=== PATIENT | male | born 1955 | race Hispanic/Latino ===

== ENCOUNTER → 2023-07-20 | Day surgery (SDC) | payer MEDICARE ==
[2023-07-18 09:45] LABS: BASOPHILS # (AUTO) 0.1 (0.0-0.1); BASOPHILS % 0.7 % (0.0-1.0); EOSINOPHILS # (AUTO) 0.2 (0.0-0.4); EOSINOPHILS % 2.6 % (0.0-6.0); HEMATOCRIT 41.6 % (38.2-49.6); HEMOGLOBIN 14.3 g/dL (14.0-18.0); LYMPHOCYTES # (AUTO) 2.4 (1.0-3.2); LYMPHOCYTES % 33.3 % (18.0-39.1); MEAN CORPUSCULAR HEMOGLOBIN 29.6 pg (28-32); MEAN CORPUSCULAR HGB CONC 34.4 g/dL (31-35); MEAN CORPUSCULAR VOLUME 86.1 fL (81-99); MONOCYTES # (AUTO) 0.8 (0.2-0.8); MONOCYTES % 11.3 % (4.4-11.3); NEUTROPHILS # (AUTO) 3.8 (2.1-6.9); NEUTROPHILS % 51.7 % (38.7-80.0); PLATELET COUNT 231 x10e3/uL (140-360); RED BLOOD COUNT 4.83 x10e6/uL (4.3-5.7); RED CELL DISTRIBUTION WIDTH 11.4 % (11.7-14.4); WHITE BLOOD COUNT 7.32 x10e3/uL (4.8-10.8)
[~2023-07-20] MED LIST: ATORVASTATIN CA20 MG PO; FENTANYL CITRATE/PF 100MCG/2 ML INJ ONE; GLIMEPIRIDE2 MG PO; LACTATED RINGER'S 1,000 ML ONE; LIDOCAINE HCL 2% LOCAL INJ 5 ML SDV VIAL INJ ONE; METFORMIN HCL500 MG PO; MIDAZOLAM HCL 2 MG/2 ML VIAL ONE; PROPOFOL IV EMULSION 10 MG/ML 20 ML VIAL ONE; TERBINAFINE HC250 MG PO
[2023-07-20 11:11] VITALS: TEMP 97.3
[2023-07-20 11:40] VITALS: BP 110/66; PULSE 62; RESP 18; O2SAT 99
== END | disposition home or self-care (01) ==
LOC: OR 08:17
PROVIDERS: ATTEND Internal Medicine Gastroenterology
DX: R19.5 Other fecal abnormalities (principal); K63.5 Polyp of colon; K62.1 Rectal polyp; K62.4 Stenosis of anus and rectum; K59.09 Other constipation; Z71.89 Other specified counseling; E11.9 Type 2 diabetes mellitus without complications; I10 Essential (primary) hypertension; Z71.3 Dietary counseling and surveillance; Z01.810 Encounter for preprocedural cardiovascular examination; Z01.812 Encounter for preprocedural laboratory examination; Z79.84 Long term (current) use of oral hypoglycemic drugs; Z79.899 Other long term (current) drug therapy
CPT/HCPCS: 36415 ×2; 45385; 82948; 85025; 88305; 93005; J2250; J3010; J7121; 45378; J2001

== ENCOUNTER 2024-03-10 13:41 | Inpatient (IN) | payer MEDICARE, OTHER ==
[~2024-03-10] VITALS: Ht 172.7 cm; Wt 77.1 kg
[2024-03-10] VITALS (16 sets, daily range): BP systolic 87–194; BP diastolic 61–92; PULSE 72–165; RESP 14–23; TEMP 97.5–98.6; O2SAT 91–97
[~2024-03-10 13:41] MED LIST changes: +DOXYCYCLINE HY100 MG PO; -FENTANYL CITRATE/PF 100MCG/2 ML INJ ONE; -LACTATED RINGER'S 1,000 ML ONE; -LIDOCAINE HCL 2% LOCAL INJ 5 ML SDV VIAL INJ ONE; -MIDAZOLAM HCL 2 MG/2 ML VIAL ONE; -PROPOFOL IV EMULSION 10 MG/ML 20 ML VIAL ONE
[2024-03-10] MEDS: ONDANSETRON HCL INJ 2MG/ML 2ML 2 MG/ML VIAL IV STA (14:34)
[2024-03-10] MEDS: SODIUM CHLORIDE 0.9% 1000ML 1,000 ML IV ONE ×2 (14:34→15:51)
[2024-03-10] MEDS: FAMOTIDINE 20 MG/2 ML VIAL IV STA (14:35)
[2024-03-10] MEDS: SODIUM CHLORIDE 0.9% 1000ML 1,000 ML IV SCH (17:30)
[2024-03-10] MEDS: HYDRALAZINE HCL 20 MG/ML VIAL IV PRN (18:39)
[2024-03-10] MEDS: ONDANSETRON HCL INJ 2MG/ML 2ML 2 MG/ML VIAL IV PRN (18:42)
[2024-03-10] MEDS: AMIODARONE 900MG 900 MG in Premix Bag 1 BAG IV SCH (21:30)
[2024-03-10] MEDS: DILTIAZEM HCL VIAL 5 ML ONE (22:24)
[2024-03-10] MEDS: DILTIAZEM HCL 5 MG/ML 5 ML VIAL IV STA (22:24)
[2024-03-10] MEDS: DILTIAZEM HCL 5 MG/ML 5 ML VIAL IV ONE (22:26)
[2024-03-10] MEDS: METOPROLOL TARTRATE INJ 1 MG/ML VIAL ONE (22:26)
[2024-03-10] MEDS: METOPROLOL SUCCINATE 25 MG TAB XL ONE (22:27)
[2024-03-10] MEDS: AMIODARONE 900MG 500 ML IV ONE (22:27)
[2024-03-10] MEDS: METOPROLOL TARTRATE 25 MG TAB PO ONE (22:35)
[2024-03-11] VITALS (40 sets, daily range): BP systolic 90–193; BP diastolic 64–138; PULSE 60–141; RESP 6–30; TEMP 98–98.6; O2SAT 92–100
[2024-03-11 06:52] LABS: BASOPHILS % 0.5 % (0.0-1.0); EOSINOPHILS # (AUTO) 0.1 (0.0-0.4); EOSINOPHILS % 0.7 % (0.0-6.0); HEMATOCRIT 39.3 % (38.2-49.6); HEMOGLOBIN 12.6 g/dL (14.0-18.0); LYMPHOCYTES # (AUTO) 1.4 (1.0-3.2); MEAN CORPUSCULAR HEMOGLOBIN 28.6 pg (28-32); MEAN CORPUSCULAR HGB CONC 32.1 g/dL (31-35); MEAN CORPUSCULAR VOLUME 89.1 fL (81-99); MONOCYTES # (AUTO) 1.3 (0.2-0.8); NEUTROPHILS # (AUTO) 5.7 (2.1-6.9); NEUTROPHILS % 67.4 % (38.7-80.0); PLATELET COUNT 247 x10e3/uL (140-360); RED BLOOD COUNT 4.41 x10e6/uL (4.3-5.7); RED CELL DISTRIBUTION WIDTH 12.5 % (11.7-14.4); WHITE BLOOD COUNT 8.46 x10e3/uL (4.8-10.8)
[2024-03-11 07:17] LABS: ANION GAP 11.9 mmol/L (8-16); CALCIUM 8.7 mg/dL (8.4-10.2); CREATININE, SERUM 1.13 mg/dL (0.72-1.25); POTASSIUM 3.9 mmol/L (3.5-5.1)
[2024-03-11] MEDS: METOPROLOL TARTRATE 50 MG TAB PO SCH (12:18)
[2024-03-11] MEDS: ASPIRIN 81 MG ENTERIC COATED PO SCH (16:07)
[2024-03-11] MEDS ORDERED: DEXTROSE 50% SYRINGE 50 ML IV PRN (16:15)
[2024-03-11] MEDS: INSULIN LISPRO 100 UNIT/1 ML 3ML VIAL SQ SCH (17:07)
[2024-03-11] MEDS: ENOXAPARIN SOD INJ 40 MG/0.4 ML SYR SC SCH (17:08)
[2024-03-11] MEDS: AMIODARONE HCL 200 MG TAB PO SCH (17:09)
[2024-03-11] MEDS: METOPROLOL TARTRATE 25 MG TAB PO SCH (17:09)
[2024-03-12] VITALS (7 sets, daily range): BP systolic 122–178; BP diastolic 52–84; PULSE 59–79; RESP 11–18; TEMP 97.7–98.6; O2SAT 96–99
[2024-03-12 05:46] LABS: BASOPHILS # (AUTO) 0.1 (0.0-0.1); BASOPHILS % 0.5 % (0.0-1.0); EOSINOPHILS # (AUTO) 0.3 (0.0-0.4); EOSINOPHILS % 2.7 % (0.0-6.0); HEMATOCRIT 37.8 % (38.2-49.6); HEMOGLOBIN 12.5 g/dL (14.0-18.0); LYMPHOCYTES # (AUTO) 1.7 (1.0-3.2); LYMPHOCYTES % 17.7 % (18.0-39.1); MEAN CORPUSCULAR HEMOGLOBIN 29.2 pg (28-32); MEAN CORPUSCULAR HGB CONC 33.1 g/dL (31-35); MEAN CORPUSCULAR VOLUME 88.3 fL (81-99); MONOCYTES # (AUTO) 1.2 (0.2-0.8); MONOCYTES % 13.1 % (4.4-11.3); NEUTROPHILS # (AUTO) 6.2 (2.1-6.9); NEUTROPHILS % 65.9 % (38.7-80.0); PLATELET COUNT 213 x10e3/uL (140-360); RED BLOOD COUNT 4.28 x10e6/uL (4.3-5.7); RED CELL DISTRIBUTION WIDTH 12.2 % (11.7-14.4); WHITE BLOOD COUNT 9.36 x10e3/uL (4.8-10.8)
[2024-03-12 06:11] LABS: ALBUMIN 2.8 g/dL (3.5-5.0); ALBUMIN/GLOBULIN RATIO 1.1 (0.8-2.0); ANION GAP 12.5 mmol/L (8-16); BILIRUBIN,TOTAL 0.8 mg/dL (0.2-1.2); CALCIUM 8.1 mg/dL (8.4-10.2); CHOL/HDL RATIO 2.7 (3.9-4.7); CREATININE, SERUM 0.82 mg/dL (0.72-1.25); POTASSIUM 3.5 mmol/L (3.5-5.1); TOTAL PROTEIN 5.4 g/dL (6.5-8.1)
[2024-03-12] MEDS: CARVEDILOL 12.5 MG TAB PO SCH (08:59)
[2024-03-13] VITALS (7 sets, daily range): BP systolic 127–179; BP diastolic 65–86; PULSE 65–82; RESP 16–20; TEMP 97.7–98.7; O2SAT 93–100
[2024-03-14] VITALS: BP 165/78; PULSE 71; RESP 19; TEMP 98.5; O2SAT 100
[2024-03-14 04:00] VITALS: BP 181/76; PULSE 76; RESP 18; TEMP 98.7; O2SAT 98
[2024-03-14 07:42] VITALS: BP 169/98; PULSE 76; RESP 18; TEMP 98.5; O2SAT 98
[2024-03-14 11:28] VITALS: BP 125/72; PULSE 60; RESP 18; TEMP 97.9; O2SAT 98
[2024-03-14] MEDS ORDERED: CARVEDILOL 12.5 MG TAB PO SCH (17:00)
== END 2024-03-14 14:59 | disposition home or self-care (01) | DRG 922 ==
LOC: FSED 13:49 → ERHOLD 15:24 → MED/SURG2 16:40 → ICU 21:20 → MED/SURG3 03-12 14:55
PROVIDERS: ADMIT Internal Medicine; ATTEND Internal Medicine
DX: T67.5XXA Heat exhaustion, unspecified, initial encounter (principal); N17.0 Acute kidney failure with tubular necrosis; M62.82 Rhabdomyolysis; E11.65 Type 2 diabetes mellitus with hyperglycemia; E86.0 Dehydration; E78.5 Hyperlipidemia, unspecified; I48.91 Unspecified atrial fibrillation; Z79.84 Long term (current) use of oral hypoglycemic drugs
CPT/HCPCS: 36415; 80048; 80053; 80061; 80076; 80307; 81003; 82550; 82948; 84443; 85025; 93005; 93306; 99252; 99284; J0360; J1650; J2405; J7030

== ENCOUNTER 2024-11-21 22:36 | Inpatient (IN) | payer MEDICARE, OTHER ==
[~2024-11-21] VITALS: Ht 170.2 cm; Wt 78.7 kg
[2024-11-22] VITALS (11 sets, daily range): BP systolic 133–166; BP diastolic 65–80; PULSE 65–105; RESP 16–20; TEMP 97.6–98.3; O2SAT 95–100
[2024-11-22] MEDS: FUROSEMIDE INJ 10 MG/ML 4 ML VIAL IV ONE (01:10)
[2024-11-22] MEDS ORDERED: ONDANSETRON HCL INJ 2MG/ML 2ML 2 MG/ML VIAL IV PRN (01:30)
[2024-11-22] MEDS ORDERED: SODIUM CHLORIDE FLUSH 10 ML SYR INJ PRN (01:30)
[2024-11-22] MEDS: ASPIRIN 81 MG CHEW TAB PO ONE (01:37)
[2024-11-22] MEDS ORDERED: ACETAMINOPHEN 325 MG TAB PO PRN ×2 (02:15→11:30)
[2024-11-22] MEDS ORDERED: DEXTROSE 50% SYRINGE 50 ML IV PRN (02:15)
[2024-11-22] MEDS ORDERED: FUROSEMIDE40 MG PO (05:09)
[2024-11-22] MEDS ORDERED: METOPROLOL SUCC25 MG PO (05:09)
[2024-11-22] MEDS ORDERED: AMLODIPINE BESYL5 MG PO (05:10)
[2024-11-22] MEDS ORDERED: LOSARTAN POTAS100 MG PO (05:10)
[2024-11-22] MEDS ORDERED: ASPIRIN81 MG PO (05:10)
[2024-11-22] MEDS: INSULIN LISPRO 100 UNIT/1 ML 3ML VIAL SQ SCH (08:54)
[2024-11-22 09:14] LABS: BASOPHILS % 0.3 % (0.0-1.0); EOSINOPHILS # (AUTO) 0.2 (0.0-0.4); EOSINOPHILS % 1.6 % (0.0-6.0); HEMATOCRIT 27.4 % (38.2-49.6); HEMOGLOBIN 9.3 g/dL (14.0-18.0); LYMPHOCYTES # (AUTO) 1.1 (1.0-3.2); LYMPHOCYTES % 10.1 % (18.0-39.1); MEAN CORPUSCULAR HEMOGLOBIN 28.5 pg (28-32); MEAN CORPUSCULAR HGB CONC 33.9 g/dL (31-35); MONOCYTES # (AUTO) 0.9 (0.2-0.8); MONOCYTES % 8.3 % (4.4-11.3); NEUTROPHILS # (AUTO) 8.3 (2.1-6.9); NEUTROPHILS % 79.4 % (38.7-80.0); PLATELET COUNT 223 x10e3/uL (140-360); RED BLOOD COUNT 3.26 x10e6/uL (4.3-5.7); RED CELL DISTRIBUTION WIDTH 13.3 % (11.7-14.4); WHITE BLOOD COUNT 10.45 x10e3/uL (4.8-10.8)
[2024-11-22 09:42] LABS: CHOL/HDL RATIO 1.6 (3.9-4.7)
[2024-11-22] MEDS: ASPIRIN 81 MG ENTERIC COATED PO SCH (09:44)
[2024-11-22] MEDS: METOPROLOL TARTRATE 25 MG TAB PO SCH (09:44)
[2024-11-22] MEDS: ENOXAPARIN INJ 80 MG/0.8 ML SYR SC SCH (09:45)
[2024-11-22] MEDS: AMIODARONE HCL 200 MG TAB PO SCH (09:45)
[2024-11-22] MEDS: METOPROLOL TARTRATE INJ 1 MG/ML VIAL IV ONE (09:45)
[2024-11-22 09:48] LABS: TROPONIN I 0.035 ng/mL (0-0.300)
[2024-11-22 10:02] LABS: THYROID STIMULATING HORMONE 1.374 uIU/mL (0.350-4.940)
[2024-11-22] MEDS ORDERED: METOPROLOL TARTRATE INJ 1 MG/ML VIAL IV PRN (11:30)
[2024-11-22] MEDS ORDERED: DOCUSATE SODIUM 100 MG CAP PO PRN (11:30)
[2024-11-22] MEDS ORDERED: ALBUTEROL/IPRATROPIUM 3 ML NEB NEB PRN (11:30)
[2024-11-22] MEDS: FUROSEMIDE INJ 10 MG/ML 2 ML VIAL IV SCH (12:14)
[2024-11-22] MEDS ORDERED: REGADENOSON 0.4 MG/5 ML SYR IV ONE (15:17)
[2024-11-22] MEDS ORDERED: MELATONIN 3 MG TAB PO PRN (21:00)
[2024-11-22] MEDS: ENOXAPARIN SOD INJ 40 MG/0.4 ML SYR SC SCH (21:14)
[2024-11-22] MEDS: ATORVASTATIN 20 MG TAB PO SCH (21:15)
[2024-11-23] VITALS: BP 145/66; PULSE 70; RESP 19; TEMP 99.1; O2SAT 94
[2024-11-23 05:30] VITALS: BP 144/67; PULSE 77; RESP 18; TEMP 98.4; O2SAT 96
[2024-11-23 06:24] LABS: BASOPHILS % 0.4 % (0.0-1.0); EOSINOPHILS # (AUTO) 0.2 (0.0-0.4); EOSINOPHILS % 2.6 % (0.0-6.0); HEMOGLOBIN 8.7 g/dL (14.0-18.0); LYMPHOCYTES # (AUTO) 1.4 (1.0-3.2); LYMPHOCYTES % 17.9 % (18.0-39.1); MEAN CORPUSCULAR HEMOGLOBIN 28.4 pg (28-32); MEAN CORPUSCULAR HGB CONC 33.5 g/dL (31-35); MONOCYTES # (AUTO) 0.8 (0.2-0.8); MONOCYTES % 10.4 % (4.4-11.3); NEUTROPHILS # (AUTO) 5.5 (2.1-6.9); NEUTROPHILS % 68.4 % (38.7-80.0); PLATELET COUNT 227 x10e3/uL (140-360); RED BLOOD COUNT 3.06 x10e6/uL (4.3-5.7); RED CELL DISTRIBUTION WIDTH 13.4 % (11.7-14.4); WHITE BLOOD COUNT 7.99 x10e3/uL (4.8-10.8)
[2024-11-23 07:01] LABS: PHOSPHORUS 4.9 MG/DL (2.3-4.7)
[2024-11-23 07:05] LABS: ANION GAP 15.8 mmol/L (8-16); CALCIUM 8.6 mg/dL (8.4-10.2); CREATININE, SERUM 1.23 mg/dL (0.72-1.25); MAGNESIUM 2.1 MG/DL (1.3-2.1); POTASSIUM 3.8 mmol/L (3.5-5.1)
[2024-11-23 07:30] VITALS: PULSE 72; RESP 16; O2SAT 97
[2024-11-23] MEDS: LOSARTAN POTASSIUM 100 MG TAB PO SCH (09:28)
[2024-11-23 09:38] VITALS: BP 140/72; PULSE 72; RESP 18; TEMP 98.3; O2SAT 100
[2024-11-23 09:43] LABS: TROPONIN I 0.047 ng/mL (0-0.300)
[2024-11-23 12:06] VITALS: BP 143/72
[2024-11-23] MEDS: METOPROLOL SUCCINATE 50 MG TAB XL PO SCH (12:06)
[2024-11-23] MEDS ORDERED: ELIQUIS5 MG PO (12:59)
[2024-11-23] MEDS ORDERED: COZAAR100 MG PO (12:59)
[2024-11-23] MEDS ORDERED: AMIODARONE HCL200 MG PO (12:59)
[2024-11-23] MEDS ORDERED: TOPROL XL50 MG PO (12:59)
[2024-11-23] MEDS ORDERED: FUROSEMIDE20 MG PO (12:59)
[2024-11-23 13:31] VITALS: PULSE 73; RESP 16; O2SAT 96
[2024-11-23] MEDS ORDERED: APIXABAN 5 MG TABLET PO SCH (17:00)
[2024-11-23] MEDS ORDERED: AMIODARONE HCL 200 MG TAB PO SCH (17:00)
== END 2024-11-23 13:49 | disposition home or self-care (01) | DRG 291 ==
LOC: FSED 22:46 → ERHOLD 11-22 01:26 → MED/SURG2 11-22 02:21
PROVIDERS: ADMIT Internal Medicine; ATTEND Internal Medicine
DX: I11.0 Hypertensive heart disease with heart failure (principal); I50.33 Acute on chronic diastolic (congestive) heart failure; E11.9 Type 2 diabetes mellitus without complications; E78.5 Hyperlipidemia, unspecified; I48.0 Paroxysmal atrial fibrillation; D64.9 Anemia, unspecified; N20.0 Calculus of kidney; R53.81 Other malaise; N50.89 Other specified disorders of the male genital organs; Z79.82 Long term (current) use of aspirin; Z79.84 Long term (current) use of oral hypoglycemic drugs; Z87.891 Personal history of nicotine dependence
CPT/HCPCS: 36415; 71250; 74176; 78452; 80048; 80061; 82550; 82553; 82948; 83036; 83735; 83880; 84100; 84443; 84484; 85025; 93005; 93017; 93306; 94799; 96374; 99284; A9502; J1650; J1940

== ENCOUNTER 2025-06-17 10:46 | Inpatient (IN) | payer MEDICARE ==
[~2025-06-17] VITALS: Ht 172.7 cm; Wt 73.6 kg
[~2025-06-17 10:46] MED LIST changes: +AMIODARONE HCL200 MG PO; +AMLODIPINE BESYL5 MG PO; +ASPIRIN81 MG PO; +COZAAR100 MG PO; +ELIQUIS5 MG PO; +FUROSEMIDE20 MG PO; +FUROSEMIDE40 MG PO; +LOSARTAN POTAS100 MG PO; +METOPROLOL SUCC25 MG PO; +TOPROL XL50 MG PO
[2025-06-17 10:50] VITALS: TEMP 98.4
[2025-06-17] MEDS: ACETAMINOPHEN 325 MG TAB PO ONE (12:58)
[2025-06-17] MEDS: CEFTRIAXONE 1 GM in SODIUM CHLORIDE 0.9% 100 ML IV ONE (14:14)
[2025-06-17] MEDS ORDERED: ONDANSETRON HCL INJ 2MG/ML 2ML 2 MG/ML VIAL IV PRN (14:15)
[2025-06-17] MEDS ORDERED: CEFTRIAXONE 1 GM VIAL IV ONE (14:15)
[2025-06-17 14:40] VITALS: PULSE 59; RESP 16
[2025-06-17] MEDS ORDERED: POTASSIUM CHLORIDE 20 MEQ TAB CR PO PRN (16:15)
[2025-06-17] MEDS ORDERED: SIMETHICONE 80 MG CHEW PO PRN (16:15)
[2025-06-17] MEDS ORDERED: LIDOCAINE 4% PATCH TP PRN (16:15)
[2025-06-17] MEDS ORDERED: ACETAMINOPHEN 325 MG TAB PO PRN (16:15)
[2025-06-17] MEDS ORDERED: DIPHENHYDRAMINE HCL 25 MG CAP PO PRN (16:15)
[2025-06-17] MEDS ORDERED: BENZONATATE 100 MG CAP PO PRN (16:15)
[2025-06-17] MEDS ORDERED: DOCUSATE SODIUM 100 MG CAP PO PRN (16:15)
[2025-06-17] MEDS ORDERED: ALBUTEROL/IPRATROPIUM 3 ML NEB NEB PRN (16:15)
[2025-06-17] MEDS ORDERED: HYDROCODONE/APAP 5MG-325MG TAB PO PRN (16:15)
[2025-06-17] MEDS ORDERED: DEXTROSE 50% SYRINGE 50 ML IV PRN ×2 (16:15→22:00)
[2025-06-17 16:57] VITALS: BP 185/75; PULSE 63; RESP 20; TEMP 98.1; O2SAT 100
[2025-06-17 17:56] VITALS: BP 185/75; PULSE 63; RESP 20; TEMP 98.1; O2SAT 100
[2025-06-17] MEDS: SODIUM CHLORIDE 0.9% 1000ML 1,000 ML IV SCH (18:06)
[2025-06-17] MEDS: HYDRALAZINE HCL 20 MG/ML VIAL IV PRN (18:10)
[2025-06-17] MEDS ORDERED: FARXIGA10 MG PO (18:47)
[2025-06-17] MEDS ORDERED: NEURONTIN100 MG PO (18:47)
[2025-06-17] MEDS ORDERED: HYDROCHLOROTHIA25 MG PO (18:47)
[2025-06-17] MEDS: ENOXAPARIN SOD INJ 40 MG/0.4 ML SYR SC SCH (19:30)
[2025-06-17] MEDS: Vancomycin IV 1 GM in SODIUM CHLORIDE 0.9% 250ML 250 ML IV ONE (19:31)
[2025-06-17 20:22] VITALS: BP 144/62; PULSE 70; RESP 18; TEMP 98.6; O2SAT 100
[2025-06-17 21:00] VITALS: BP 144/62; PULSE 70; RESP 18; TEMP 98.6; O2SAT 100
[2025-06-17] MEDS ORDERED: MELATONIN 5 MG TABLET PO PRN (21:00)
[2025-06-17] MEDS: CEFEPIME 2 GM in SODIUM CHLORIDE 0.9% 100 ML IV SCH (22:16)
[2025-06-18] VITALS (11 sets, daily range): BP systolic 132–162; BP diastolic 57–72; PULSE 62–71; RESP 16–19; TEMP 97.8–98.8; O2SAT 98–100
[2025-06-18 06:13] LABS: BASOPHILS % 0.3 % (0.0-1.0); EOSINOPHILS % 5.0 % (0.0-6.0); LYMPHOCYTES % 17.4 % (18.0-39.1); MONOCYTES % 12.9 % (4.4-11.3); NEUTROPHILS % 64.1 % (38.7-80.0); RED CELL DISTRIBUTION WIDTH 13.0 % (11.7-14.4)
[2025-06-18 06:45] LABS: EST GLOMERULAR FILTRATION RATE 58.0 ML/MIN (>=60); PHOSPHORUS 3.6 MG/DL (2.3-4.7)
[2025-06-18 07:01] LABS: CHOL/HDL RATIO 2.0 (3.9-4.7); LDL CHOLESTEROL 31.0 MG/DL (60-130)
[2025-06-18] MEDS: INSULIN LISPRO 100 UNIT/1 ML 3ML VIAL SQ SCH (09:08)
[2025-06-18] MEDS: APIXABAN 5 MG TABLET PO SCH (09:16)
[2025-06-18] MEDS: LOSARTAN POTASSIUM 100 MG TAB PO SCH (09:18)
[2025-06-18] MEDS: PANTOPRAZOLE SOD 40 MG TABEC PO SCH (09:18)
[2025-06-18] MEDS: METOPROLOL SUCCINATE 25 MG TAB XL PO SCH (09:20)
[2025-06-18] MEDS: Vancomycin IV 1 GM in SODIUM CHLORIDE 0.9% 250ML 250 ML IV SCH (09:22)
[2025-06-18] MEDS: ATORVASTATIN 20 MG TAB PO SCH (20:44)
[2025-06-18] MEDS: GABAPENTIN 100 MG CAP PO SCH (20:44)
[2025-06-19] VITALS (11 sets, daily range): BP systolic 132–168; BP diastolic 58–75; PULSE 55–69; RESP 16–19; TEMP 97.8–98.7; O2SAT 100
[2025-06-19 05:35] LABS: BASOPHILS % 0.5 % (0.0-1.0); EOSINOPHILS % 6.0 % (0.0-6.0); LYMPHOCYTES % 17.8 % (18.0-39.1); MONOCYTES % 11.5 % (4.4-11.3); NEUTROPHILS % 63.9 % (38.7-80.0); RED CELL DISTRIBUTION WIDTH 12.9 % (11.7-14.4)
[2025-06-19 06:28] LABS: EST GLOMERULAR FILTRATION RATE 64.0 ML/MIN (>=60)
[2025-06-20] VITALS (8 sets, daily range): BP systolic 152–192; BP diastolic 63–76; PULSE 60–77; RESP 16–20; TEMP 97.9–98.6; O2SAT 98–100
[2025-06-20 06:36] LABS: BASOPHILS % 0.4 % (0.0-1.0); EOSINOPHILS % 5.3 % (0.0-6.0); LYMPHOCYTES % 17.8 % (18.0-39.1); MONOCYTES % 10.5 % (4.4-11.3); NEUTROPHILS % 65.5 % (38.7-80.0); RED CELL DISTRIBUTION WIDTH 12.8 % (11.7-14.4)
[2025-06-20 07:07] LABS: EST GLOMERULAR FILTRATION RATE 69.0 ML/MIN (>=60)
[2025-06-21] VITALS (13 sets, daily range): BP systolic 131–194; BP diastolic 59–78; PULSE 54–73; RESP 16–20; TEMP 97.8–98.7; O2SAT 97–100
[2025-06-21] MEDS: Vancomycin IV 1 GM in SODIUM CHLORIDE 0.9% 250ML 250 ML IV SCH (09:32)
[2025-06-21] MEDS: FUROSEMIDE INJ 10 MG/ML 4 ML VIAL IV ONE (17:15)
[2025-06-21] MEDS: LOSARTAN POTASSIUM 25 MG TAB PO STA (18:32)
[2025-06-22] VITALS (10 sets, daily range): BP systolic 167–183; BP diastolic 69–76; PULSE 53–72; RESP 16–19; TEMP 97.9–98.6; O2SAT 98–100
[2025-06-22] MEDS: LOSARTAN POTASSIUM 100 MG TAB PO SCH (09:08)
[2025-06-22] MEDS: DOXYCYCLINE HYCLATE TABLET 100 MG TAB PO SCH (09:09)
[2025-06-22] MEDS: CEFTRIAXONE 2 GM in SODIUM CHLORIDE 0.9% 100 ML IV SCH (09:11)
[2025-06-22] MEDS ORDERED: NORVASC10 MG PO (16:23)
[2025-06-22] MEDS ORDERED: LOSARTAN POTAS100 MG PO (16:23)
[2025-06-22] MEDS: AMLODIPINE BESYLATE 10 MG TAB PO ONE (17:11)
[2025-06-23 03:35] VITALS: BP 137/60; PULSE 59; RESP 18; TEMP 98.7; O2SAT 99
[2025-06-23 08:21] VITALS: BP 151/61; PULSE 60; RESP 19; TEMP 98.4; O2SAT 100
[2025-06-23 08:30] VITALS: BP 151/61; PULSE 60; RESP 19; TEMP 98.4; O2SAT 100
[2025-06-23 12:37] VITALS: BP 175/75; PULSE 62; RESP 19; TEMP 97.9; O2SAT 100
[2025-06-23] MEDS: AMLODIPINE BESYLATE 10 MG TAB PO ONE (15:27)
[2025-06-23 16:06] VITALS: BP 159/73; PULSE 55; RESP 19; TEMP 97.9; O2SAT 99
== END 2025-06-23 16:40 | disposition home health service (06) | DRG 638 ==
LOC: FSED 11:44 → ERHOLD 14:03 → OBSVTOIN 16:05 → MED/SURG2 16:20
PROVIDERS: ADMIT Internal Medicine; ATTEND Internal Medicine
PROC: 02HV33Z Insertion of Infusion Device into Superior Vena Cava, Percutaneous Approach (ICD-10-PCS; principal; 2025-06-19)
DX: E11.69 Type 2 diabetes mellitus with other specified complication (principal); L03.116 Cellulitis of left lower limb; M86.172 Other acute osteomyelitis, left ankle and foot; E11.621 Type 2 diabetes mellitus with foot ulcer; L97.528 Non-pressure chronic ulcer of other part of left foot with other specified severity; E11.51 Type 2 diabetes mellitus with diabetic peripheral angiopathy without gangrene; E11.42 Type 2 diabetes mellitus with diabetic polyneuropathy; I48.0 Paroxysmal atrial fibrillation; I10 Essential (primary) hypertension; E78.5 Hyperlipidemia, unspecified; M15.9 Polyosteoarthritis, unspecified; Z79.01 Long term (current) use of anticoagulants; Z79.82 Long term (current) use of aspirin; Z79.84 Long term (current) use of oral hypoglycemic drugs
CPT/HCPCS: 36415; 36569; 71045; 80048; 80053; 80061; 80202; 81003; 82948; 83036; 83735; 84100; 84443; 85025; 86140; 87040; 87081; 93925; 93970; 93971; 94799; 99252; 99284; J0360; J0692; J0696; J1650; J1938; J2470; J3373; J7030; J7050